=== PATIENT | female | born 2000 | race African-American/Black ===

== ENCOUNTER 2023-07-14 11:45 | Outpatient (CLI) | payer MEDICAID, SELFPAY ==
--- NOTE | 2023-07-14 11:52 | XR_ITS ---
WS: [id number] Right hip, 2 views, AP pelvis, 07/14/2023 Clinical Data: RIGHT HIP PAIN Comparison: None. Findings: No fractures or dislocations are seen. The right hip shows no erosion, sclerosis, narrowing, fragment ation or cyst formation. The left hip is normal.. The soft tissues are not remarkable. The adjacent p soraida is normal. XR/XR hip RT 2-3V wo/w pel* [id number] Impression: Negative pelvis and right hip Tonnis classification: grade 0: normal radiographs
== END 2023-07-14 11:46 | disposition home or self-care (01) ==
LOC: RAD 11:48
PROVIDERS: Family Provider Family Medicine; PCP Family Medicine; Visit Provider Nurse Practitioner Family
DX: M25.551 Pain in right hip (principal)
CPT/HCPCS: 73502